=== PATIENT | female | born 1955 | race Caucasian/White ===

== ENCOUNTER 2017-10-28 16:17 | Emergency (ER) | payer MEDICAID ==
[~2017-10-28] VITALS: Ht 154.9 cm; Wt 65.8 kg
[2017-10-28 16:56] VITALS: Ht 154.9 cm; Wt 65.8 kg
[2017-10-28 19:41] VITALS: BP 126/64
== END 2017-10-28 19:41 | disposition home or self-care (01) ==
LOC: ED 16:17
DX: R05 Cough (principal); R06.02 Shortness of breath